=== PATIENT | female | born 1950 | race Caucasian/White ===

== ENCOUNTER → 2017-01-30 | Outpatient (CLI) | payer OTHER ==
[~2017-01-30] MED LIST: ASPI81TA11 PO; TRAZ50TA12 PO; TRIBTAB9 PO
[2017-01-30 15:08] LABS: HEMATOCRIT 39.7 % (35.0-46.0); MEAN CELL VOLUME 86.2 FL (80.0-100.0); MEAN CORPUSCULAR HGB CONC 33.7 % (32.0-36.0); PLATELET COUNT 234 TH/MM3 (150-450); RED BLOOD COUNT 4.61 MIL/MM3 (4.00-5.30); RED CELL DISTRIBUTION WIDTH 13.7 % (11.6-17.2); REVIEW FLAG FINAL
[2017-01-30 15:36] LABS: BICARBONATE 28.3 MEQ/L (21.0-32.0); POTASSIUM 3.6 MEQ/L (3.5-5.1)
--- NOTE | 2017-01-30 16:31 | EKG ---
Date Performed: 01/30/2017 Time Performed: 14:15:49 PTAGE: 66 years EKG: Sinus rhythm WITH OCCASIONAL VENTRICULAR PREMATURE COMPLEXES LOW QRS VOLTAGE IN PRECORDIAL LEADS BORDERLINE ECG C ompared to the PREVIOUS TRACING PVCs are now present DOCTOR: Macho Simpson Interpretating Date/Time 01/30/2017 16:29:39
== END ==
LOC: CPRE 13:58
PROVIDERS: ATTEND Plastic Surgery
DX: Z01.812 Encounter for preprocedural laboratory examination (principal); Z01.810 Encounter for preprocedural cardiovascular examination; T85.44XA Capsular contracture of breast implant, initial encounter; I49.3 Ventricular premature depolarization
CPT/HCPCS: 36415; 80051; 85027; 93005

== ENCOUNTER → 2017-02-01 | Day surgery (SDC) | payer OTHER ==
[~2017-02-01] VITALS: Ht 165.1 cm; Wt 67.4 kg
[~2017-02-01] MED LIST changes: +*morphine SULFATE 8 MG/ML PERIprocedure ONLY ONE; +BUPIVACAINE LIPOSOME SCH; +CHLORHEXIDINE GLUCONATE 2 % 1 PACK (2 CLOTHS) TOPICAL PRN; +DEXAMETHASONE SOD PHOS 4 MG/ML VIAL ONE; +DO NOT ADM ANY ANTICOAGULANT DRUGS PRN; +FAMOTIDINE 20 MG/2 ML VIAL ONE; +HYDROmorphone HCL PF 1 MG/ML VIAL IV PRN; +INSULIN HUMAN REGULAR 1,000 UNITS/10 ML VIAL SQ PRN; +LACTATED RINGER'S 1000 ML INJ 2,000 ML IV ONE; +LACTATED RINGER'S 1000 ML IV PRN; +LIDOCAINE 1.5%/EPINEPHrine 1:200,000 PF SOLN 30 ML AMP INFIL ONE; +METOPROLOL TARTRATE 25 MG TAB PO PRN; +MIDAZOLAM HCL 2 MG/2 ML VIAL ONE; +ONDANSETRON HCL 4 MG/2 ML VIAL IV PUSH ONE; +PHENYLEPH/NS 1000 MCG/10 ML SYR IV ONE; +POVIDONE IODINE 5% (ANTISEPSIS KIT) 4 APPLICATIONS EACH NARE PRN; +PROMETHAZINE HCL 25 MG TAB PO PRN; +PROPOFOL 200 MG/20 ML AMP IV ONE; +SODIUM CHLORID 0.9% 500 ML IV PRN; +SODIUM CHLORIDE 0.9% 20 ML VIAL ONE; +SODIUM CHLORIDE FLUSH BID IV FLUSH SCH; +SODIUM CHLORIDE FLUSH PRN IV FLUSH; +ceFAZolin 1,000 MG/NS 100 ML IV SCH; +ceFAZolin INJ 1,000 MG VIAL ONE; +ePHEDrine/NS 25 MG/5 ML SYR IV ONE; +fentaNYL CITRATE 250 MCG/5 ML AMP ONE; +oxyCODONE/ACETAMINOPHEN 7.5 MG/325 MG TAB ONE; +oxyCODONE/ACETAMINOPHEN 7.5 MG/325 MG TAB PO PRN
[2017-02-01 07:50] VITALS: BP 153/89; PULSE 76; RESP 20; TEMP 97.8; O2SAT 100
--- NOTE | 2017-02-01 10:17 | MH ---
cc: ZI CARBAJAL DATE OF ADMISSION 02/01/2017 CHIEF COMPLAINT Bilateral leaking silicone gel breast implants with hard capsules nd recently increased in size of both breasts. The patient desiring removal of both sides, capsulectomy and replacement with new silicone gel implant. HISTORY OF PRESENT ILLNESS This is a 56-year-old white female who originally had surgery to the left breast lumpectomy [place] [address] Mikael Law. The patient had bilateral silicone gel breast implants placed in a subpectoral location. At that time she did not have a malignancy diagnosed. She ever since has had the same implants in place. They have become hardened over the years and recently in the past year or so the breasts have become much larger than before. The patient originally had seen me in February 2015 for her initial consultation. Around that time she had a mammogram done from 2011 that was recorded as intact implants and no breast issue. She also had a diagnostic ultrasound that is also dated January 10, 2012 and that did not indicate any cysts in the breast tissue neither did it indicate any fluid around the implant itself. The patient did not have any surgery done at that time in 2014. She subsequently came back to me in 2016. The breasts at that time did not appear as larger as it seems. Currently, the implants seem to be large at the examination and my impression was that the implant may be in the 500 cc range. However, the actual medical records which were obtained later on indicate that the implants were actually 300 cc on the right side and 300 cc on the left side. This does not correspond to the current apearance of the breasts which are much larger. than her recorde implant. The implant on the left side is recorded as 250 cc [place] Siltex implant as well. The patient's lumpectomy was actually on the right side, is not clear if the large implant was placed on the right or simply that the dictation had a typo in it. The patient desires to remove the implants and replace them through her insurance company. An authorization was requested to the breast reconstruction, revision approach and she has been approved for the same. Patient saw me last on January 27, 2017 and wished to proceed about her current situation. The last recent mammogram that she had was in 2014 locally in the [facility]. Report when reviewed indicated intact implants and no sign of any fluid collection around the implant and normal breast tissue. The patient was advised that the sudden changes in size recently may indicate fluid collection around the implant itself and although extremely rare there may be a small chance of encountering anaplastic large cell lymphoma. She was given information about this including reference to the [facility] maintained web site for the latest information. The patient has undergone an ultrasound of the breast today on January 31, 2017. It has not been reported. I did review the films and there seems to be the presence of both black and hassan areas in the film which I think represent fluid and silicone gel material respectively. The report from radiologist would be useful in this regard. The current measurements of the breast volume indicate possibility of needing 450-525 cc implant replacement to breast pockets to accommodate the amount of stretching that has taken place on the breast tissue and skin itself. The patient was also explained that there is possibility depending upon the intraoperative finding it may or may not be desirable to implant the new implants and the surgery may have to be terminated at this stage of removing the current implants, the silicone material, possibility seroma and the capsules. The patient was explained surgical incisional placement, closed or open capsulectomy. The photographs were shown, the implants were shown and overall the patient's own asymmetry and risks and complications possible were discussed. The patient is willing to proceed with the surgery and also get as best outcome as possible in light of the current clinical findings. She also understands the possibility of risks and complications such as bleeding, infection, future seroma, wound dehiscence, wound healing issues, implant exposure, need to remove and discard the implant and have her heal the area, possibility of future implant, capsular contracture, implant position asymmetry, overall soft tissue asymmetry over the implants themselves, the future interference with the mammographic detection of breast cancer with implants in general. The patient is comfortable, selecting her current implants to be silicone gel. She was shown different textures, smooth and textured, different profiles and also round versus teardrop, anatomic shapes. She has elected the teardrop design textured implants. She wishes to have smaller than her current breast size if possible. Currently, her implants and breast have become extremely rounded and prominent in the upper pole, high near the mammogram as well. The expected implant size again from 420-525 will be ordered. It may be necessary to put two different size implants in order to achieve visual symmetry. She also understands that the teardrop implants are subject to rotational deformity in addition to the other pros and cons of round implants. PAST MEDICAL HISTORY The patient's past medical history is negative for any major medical problems. She has no diabetes, no coronary artery disease. She does have high blood pressure but it is controlled. High cholesterol. PAST SURGICAL HISTORY Her surgeries include appendix and the previous breast surgery. MEDICATIONS bp meds and she also used the herbal products. The patient does not take any aspirin. ALLERGIES The patient is not allergic to any medications. SOCIAL HISTORY She is a nonsmoker. 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 History is also negative for any HIV or hepatitis C. REVIEW OF SYSTEMS She is 5 feet 5 inches tall, weighs 147 pounds. No chronic health issues. lymphadenopathy skin conditions or recent infections. No fever. No premalignant issues. PHYSICAL EXAMINATION GENERAL: Examination shows 66-year-old white female. VITAL SIGNS: Stable. GENERAL: The patient is alert, cooperative, fully oriented. Emotionally stable. She is fully ambulant. HEAD AND NECK: Shows clear sclera, equal pupils. Trachea is midline. No gross thyromegaly or other masses in the neck. Neck movements are adequate. CHEST: Has good expansion with normal breathing. Normal heart sounds. Normal breath sounds. EXTREMITIES: Upper and lower extremities are grossly intact. There is no lymphedema. No sign of any gross adenopathy in the axilla. Incidentally, the patient did mention that she believes that the silicone gel are leaking. However , there is no recorded information about it. BREASTS: The local examination of the breast shows bilaterally fairly large volume breasts. They are hard. The implants are covered in grade 4 thick capsules. They are riding high, fairly close to the level above the manubrium. The nipple-areolar complexes are normal. The palpable breast tissue is very thin and does not seem to have any obvious masses. There is some blunting of the lateral border of the right implant in particular were it may indicate the presence of silicone gel material infiltrating into the breast tissue. The implants are still possible to most likely that they are adherent to the chest wall posteriorly. The measurements show neck to the nipple distance of 25 cm on the right, 24 on the left. The nipple to the inframammary fold is 8.5 on the right and 9 cm on the left. The neck to the medial breast folds is 13 cm. The neck to the inframammary fold is 19 cm. The medial fold to the nipple is 15 cm on the right and 15 on the left. Nipple-areolar complex are grade 3 ptosis. The clinical impression is bilateral old silicone gel implants with leaking implants, documented recently grade 4, 4 capsules on both sides, possibility of new onset seroma inside the implant capsule on both sides or possibility of encountering ALCL, to remove the current capsules completely intact. It is possible if not opened them and remove the silicone gel implants and silicone gel material and perform open capsulectomies get the capsules to pathology examination, also culture any fluid encountered. Replacement with new implant if clinically advisable, will be using the teardrop moderate height, full profile, style 410 implant. The patient's laboratory tests are within normal range. signed, not fully reviewed MD SHAWNEE Sands/MADELAINE /8:49 PM /10:03 AM AWILDA
[2017-02-01 15:18] VITALS: BP 152/87; PULSE 85; RESP 18; TEMP 97; O2SAT 100
--- NOTE | 2017-02-02 06:41 | MP ---
cc: ZI CARRILLO M.D. DATE OF SURGERY 02/01/2017 PREOPERATIVE DIAGNOSIS Bilateral old silicone gel implants with disintegration and leakage with grade 4 capsules. POSTOPERATIVE DIAGNOSIS Bilateral old silicone gel implants with disintegration and leakage with grade 4 capsules including leaking gel, leaking polyurethane foam and seroma in each breast with old hematoma. SURGEON Dr. Carrillo ANESTHESIA General. PROCEDURE Bilateral breast exploration with silicone gel implant removal, silicone gel and foam material removal and debridement, total capsulectomies and breast reshaping and insertion of new silicone gel Style 410 implants. INDICATIONS This is a 66-year-old white female with bilateral silicone gel breast implants done approximately in 1987 time frame. 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 Recently the breast size has become larger and larger. She does have a palpable hard capsules as well. The original implants listed were 250 cc on the right and 300 cc on the left. However, the current expanded breast volume is nearly 600-650 cc on each side. Also the patient had a partial breast removal on the right side and a smaller implant compared to the left. Over the years the overall symmetry between the two breasts has also changed. The patient has undergone detailed explanation of the procedure including the risks, complications, pros, cons, possible future surgeries, possible infection or exposure of the implants leading to removal of the implants completely. The patient is willing to go ahead with the surgery. PROCEDURE The patient was brought to the operating room, was given supine position. Anesthesia was started. IV antibiotic had been given. Prep and drape was done. Time-out was called and completed. The surgery was started using a long inframammary crease incision located 8 cm from the nipple. It is approximately 1 cm above the current inframammary fold actually. The area was injected with lidocaine 1% with epi. Dissection was carried from skin straight down to the capsule. The capsule was exposed anteriorly and posteriorly for a short distance and medial to lateral. The soft tissues were padded with lap sponges and the capsule was opened carefully. It contained a large amount of loose silicone, also polyurethane foam sponge fragments and a black seroma fluid. Approximately 50-60 cc of fluid leaked and another 50-100 cc were aspirated from each side as well. The implant and the gross materials were removed. It was noted that the cavity contained organized old hematoma layering the entire front and back. This was scoped out. The capsule was inspected for any obvious soft tissue growth and search for any focus for an ALCL; none was clinically evident. The area was copiously scrubbed with multiple sponges and washed to remove as much silicone as possible, then the capsule was injected with tumescent solution of saline and lidocaine with epi to allow hydrodissection. The capsule was completely removed dissecting slowly from front and back. The axillary area was carefully dissected to avoid injuring any neurovascular structures. Hemostasis was excellent. Blood loss was minimal, less than 5-10 cc on each side. No active bleeders were encountered other than small perforating vessels on the sternocostal side. This was suture ligated. Both sides were copiously irrigated clean and using 0 Vicryl sutures the lateral axillary gutter was closed. The inframammary fold was tacked down and a sizer was inserted using a saline inflatable sizer, actually inflated with air to allow out looking for any compression bands across the entire breast surface. The overall shape and volumes were excellent. The sizers were removed. 0 Vicryl open sutures were used at the entrance. The implant finalized were Style 410, moderate height, full profile implant. The one on the right side was [id number], serial number is [id number]; this implant is 470 cc. The one on the left side needed to be smaller in order to get a better visual symmetry; the reference number is [id number], serial number is [id number]. The implant is 420 cc. The implants were inserted. The anterior marking tails were visualized. A 6 o'clock blue marking pen was also used to allow for proper orientation of the implant. The implants were inserted in the 6 o'clock position, was matched to approximately 0.5 cm lateral to the midline on each side to allow slight tilt of the implant. Overall both sides looked excellent match. The 0 Vicryl sutures were tied down, also 10-mm [place] drains had been inserted and secured as well. The skin and soft tissue closure was completed with Vicryl and Prolene. The patient remained stable and sterile dressing was applied. Intraoperative blood loss less than 25 cc total. No complications. SPECIMENS The capsules removed and material were examined in the operating room. The capsules were completely opened to check the inside. Again, most of the inside of the capsule contained the organized hematoma and fibrin. No clear sign of any soft tissue growth was noted. The capsules and a sample of the fluid that has been taken will be sent specifically to look for ALCL in addition to the regular pathology examination. The implants were also was sent for documentation. signed, not fully reviewed MD SHAWNEE Sands/WM /12:50 PM /6:19 AM MTDD
== END | disposition home or self-care (01) ==
LOC: HSDC 06:59
PROVIDERS: ATTEND Plastic Surgery
DX: T85.43XA Leakage of breast prosthesis and implant, initial encounter (principal); Y83.8 Other surgical procedures as the cause of abnormal reaction of the patient, or of later complication, without mention of misadventure at the time of the procedure; I10 Essential (primary) hypertension; E78.00 Pure hypercholesterolemia, unspecified; Z87.891 Personal history of nicotine dependence; Z79.82 Long term (current) use of aspirin; Z79.899 Other long term (current) drug therapy
CPT/HCPCS: 00402; 19340; 19371; 88112; 88305; 88312; C1789; C9290; J0690; J1100; J2250; J2270; J2370; J2405; J3010; J7120; 88300